=== PATIENT | female | born 1990 | race Caucasian/White ===

== ENCOUNTER → 2018-04-11 | Outpatient (CLI) | payer OTHER | LOC: FIMAGING 10:32 | PROVIDERS: ATTEND Obstetrics & Gynecology | DX: Z34.92 Encounter for supervision of normal pregnancy, unspecified, second trimester (principal); Z3A.23 23 weeks gestation of pregnancy ==

== ENCOUNTER → 2018-06-12 | Outpatient (CLI) | payer OTHER | LOC: FIMAGING 12:43 | PROVIDERS: ATTEND Obstetrics & Gynecology | DX: O36.63X0 Maternal care for excessive fetal growth, third trimester, not applicable or unspecified (principal); O99.013 Anemia complicating pregnancy, third trimester; D56.1 Beta thalassemia; Z3A.32 32 weeks gestation of pregnancy ==

== ENCOUNTER → 2018-07-11 | Outpatient (CLI) | payer OTHER | LOC: FIMAGING 09:28 | PROVIDERS: ATTEND Obstetrics & Gynecology | DX: O36.63X0 Maternal care for excessive fetal growth, third trimester, not applicable or unspecified (principal); O99.013 Anemia complicating pregnancy, third trimester; Z3A.36 36 weeks gestation of pregnancy ==